=== PATIENT | male | born 1980 | race African-American/Black ===

== ENCOUNTER 2020-03-21 05:16 | Emergency (ER) | payer SELFPAY ==
[~2020-03-21] VITALS: Ht 180.3 cm; Wt 123.8 kg
[2020-03-21 05:22] VITALS: Ht 180.3 cm; Wt 123.8 kg
[2020-03-21 07:14] LABS: BASOPHIL % 0.5 % (0-2); PLATELET COUNT 244 x10^3mcL (130-400); RED CELL DISTRIBUTION WIDTH 12.9 % (11.5-14.5)
[2020-03-21 07:30] LABS: CALCIUM 9.1 mg/dL (8.5-10.1); CARBON DIOXIDE 29.7 mmol/L (21-32); CREATININE SERUM 1.6 mg/dL (0.7-1.3); POTASSIUM SERUM 3.7 mmol/L (3.5-5.1)
[2020-03-21 08:28] VITALS: BP 120/82
== END 2020-03-21 08:28 | disposition home or self-care (01) ==
LOC: ED 05:16
PROVIDERS: Emergency Medicine
DX: E86.0 Dehydration (principal); I10 Essential (primary) hypertension